=== PATIENT | female | born 1990 | race Two or more races ===

== ENCOUNTER 2019-04-14 09:35 | Emergency (ER) | payer OTHER ==
[2019-04-14 10:01] VITALS: TEMP 97.8; BMI 29.5
[2019-04-14] MEDS ORDERED: KETOROLAC TROMETHAMINE 60 MG/2 ML VIAL IM ONE (10:18)
[2019-04-14] MEDS ORDERED: KETOROLAC TROMETHAMINE 60 MG/2 ML VIAL ONE (10:27)
[2019-04-14 10:51] LABS: HYALINE CASTS 18 /lpf (0-8); PH,URINE 7.5 (5.0-8.0); URINE APPEARANCE CLOUDY; URINE BILIRUBIN NEGATIVE (NEGATIVE); URINE COLOR YELLOW; URINE GLUCOSE (UA) NEGATIVE (NEGATIVE); URINE KETONE NEGATIVE (NEGATIVE); URINE LEUK ESTERASE NEGATIVE (NEGATIVE); URINE NITRITE NEGATIVE (NEGATIVE); URINE PROTEIN 2+ (NEGATIVE); URINE RBC 4 /hpf (0-4); URINE WBC 7 /hpf (0-5)
--- NOTE | 2019-04-14 11:11 | PDOC ---
History of Present Illness - General History Source: Patient Exam Limitations: No Limitations - History of Present Illness Travel History: No Initial Comments: 04/14/19 10:06 28-year-old female presents to ED with complaints of worsening left suprapubic pain for the past few months. Patient denies irregular menses but states intermittent pain causes her to have headaches along with left-sided and right- sided chest pain. Patient denies any shortness of breath leg pain, or recent travel. Patient also states intermittent dyspareunia . patient states history of denies [employer]TAIN or GI history. Patient states regular menses and has an IUD placed approximately 3 years ago. Patient denies vaginal discharge, urinary complaints, fever, chills diarrhea, or nausea. Patient states has not taken any medication for the above and has not seen her SAIL[employer]AT CAPTAIN for the above complaints secondary to lack of insurance Timing/Duration: reports: getting worse, intermittent Quality: reports: mild Abdominal Pain Onset Location: reports: suprapubic Pain Radiation: reports: chest Activities at Onset: reports: none Aggravating Factors: improves with: Movement Alleviating Factors: improves with: None <Serena Sales - Last Filed: 04/14/19 14:51> <Buffy Sexton - Last Filed: 04/24/19 09:59> - General Chief Complaint: Pain, Acute Stated Complaint: ABD.PAIN/CHEST PAIN/BETANCUR Time Seen by Provider: 04/14/19 10:14 Past History - Travel Traveled outside of the country in the last 30 days: No Close contact w/someone who was outside of country & ill: No - Past Medical History Asthma: No Cancer: No Cardiac Disorders: No COPD: No Diabetes: No Disorders: No () HTN: No Seizures: No Thyroid Disease: No - Surgical History Abdominal Surgery: Yes Cholecystectomy: Yes - Reproductive History (#): 3 Para: 2 - Immunization History Immunization Up to Date: Yes - Psycho Social/Smoking Cessation Hx Smoking Status: No Smoking History: Current every day smoker Have you smoked in the past 12 months: Yes Number of Cigarettes Smoked Daily: 2 Information on smoking cessation initiated: No Hx Alcohol Use: No Drug/Substance Use Hx: No Substance Use Type: None Hx Substance Use Treatment: No Patient Lives Alone: No Lives with/in: spouse/SO <Serena aSles - Last Filed: 04/14/19 14:51> <Buffy eSxton - Last Filed: 04/24/19 09:59> - Past Medical History Allergies/Adverse Reactions: Allergies Allergy/AdvReac Type Severity Reaction Status Date / Time No Known Allergies Allergy Verified 01/31/17 14:55 Home Medications: Ambulatory Orders Ibuprofen [Motrin -] 600 mg PO PRN 04/14/19 Oxycodone HCl/Acetaminophen [Percocet 5-325 mg Tablet] 1 - 2 tab PO Q6H PRN #12 tab MDD 4 04/14/19 Review of Systems - Review of Systems Able to Perform ROS?: No Constitutional: No: Symptoms Reported HEENTM: No: Symptoms Reported Respiratory: No: Symptoms reported Cardiac (ROS): No: Symptoms Reported ABD/GI: Yes: Abdominal cramping. No: Nausea, Vomiting : No: Symptoms Reported Musculoskeletal: No: Symptoms Reported Integumentary: No: Symptoms Reported Hematologic/Lymphatic: No: Symptoms Reported <Serena Sales - Last Filed: 04/14/19 14:51> *Physical Exam - Vital Signs Last Vital Signs Temp Pulse Resp BP Pulse Ox 97.8 F 96 H 18 103/65 100 04/14/19 09:59 04/14/19 09:59 04/14/19 09:59 04/14/19 09:59 04/14/19 09:59 - Physical Exam General Appearance: Yes: Nourished, Appropriately Dressed. No: Apparent Distress HEENT: negative: Pale Conjunctivae Neck: positive: Normal Thyroid Respiratory/Chest: positive: Lungs Clear, Normal Breath Sounds. negative: Respiratory Distress, Accessory Muscle Use Cardiovascular: positive: Regular Rhythm, Regular Rate. negative: Murmur Female Pelvic Exam: positive: cervical os closed, adnexal tenderness (Left). negative: CMT ( No palpable IUD strings), discharge, vaginal bleeding Gastrointestinal/Abdominal: positive: Soft, Tenderness (Left suprapubic mid suprapubic) Musculoskeletal: negative: CVA Tenderness Extremity: positive: Normal Inspection Integumentary: positive: Normal Color, Warm, Moist Neurologic: positive: Motor Strength 5/5 (Ambulatory) <Serena Sales - Last Filed: 04/14/19 14:51> - Vital Signs Last Vital Signs Temp Pulse Resp BP Pulse Ox 97.8 F 80 16 113/63 100 04/14/19 09:59 04/14/19 12:44 04/14/19 12:44 04/14/19 12:44 04/14/19 12:44 <Buffy Sexton - Last Filed: 04/24/19 09:59> ED Treatment Course - ADDITIONAL ORDERS Additional order review: Laboratory Results 04/14/19 04/14/19 10:25 10:25 Urine Color Yellow Urine Appearance Cloudy Urine pH 7.5 D Ur Specific [place] 1.026 Urine Protein 2+ H Urine Glucose (UA) Negative Urine Ketones Negative Urine Blood Negative Urine Nitrite Negative Urine Bilirubin Negative Urine Urobilinogen 1.0 Ur Leukocyte Esterase Negative Urine WBC (Auto) 7 Urine RBC (Auto) 4 Urine Casts (Auto) 18 U Epithel Cells (Auto) 13.0 Urine Bacteria (Auto) 508.0 Urine HCG, Qual Negative - RADIOLOGY Radiology Studies Ordered: Category Date Time Status TRANSVAGINAL ULTRASOUND US [US] Stat Ultrasound 04/14/19 10:18 Ordered - Medications Given in the ED: ED Medications Discontinued Medications Generic Name Dose Route Start Last Admin Trade Name Freq PRN Reason Stop Dose Admin Ketorolac Tromethamine 60 mg 04/14/19 10:18 04/14/19 10:35 Toradol Injection - IM 04/14/19 10:19 60 mg ONCE ONE Administration <Serena Sales - Last Filed: 04/14/19 14:51> - ADDITIONAL ORDERS Additional order review: 04/14/19 10:25 Urine Culture - Final Urine - Urine Clean Catch NO GROWTH OBTAINED - Medications Given in the ED: ED Medications Discontinued Medications Generic Name Dose Route Start Last Admin Trade Name Freq PRN Reason Stop Dose Admin Ketorolac Tromethamine 60 mg 04/14/19 10:18 04/14/19 10:35 Toradol Injection - IM 04/14/19 10:19 60 mg ONCE ONE Administration <Buffy Sexton - Last Filed: 04/24/19 09:59> Medical Decision Making - Medical Decision Making 04/14/19 11:16 Chief complaint: Patient with intermittent left suprapubic pain worsening once and around menstrual cycles. Patient has IUD in for the past 3 years. Patient also states associated pain causes intermittent headache along with bilateral chest pain patient has not been seen by [employer]IL[employer]TAIN or PMD nor has she taken any medications. No other complaints. Exam: Patient with left suprapubic and left adnexal tenderness on pelvic exam plan: Urine urinalysis urine and transvaginal ultrasound ordered 04/14/19 11:17 Laboratory Tests 04/14/19 04/14/19 10:25 10:25 Urine Protein 2+ H Ur Leukocyte Esterase Negative Urine WBC (Auto) 7 Urine HCG, Qual Negative 04/14/19 12:05 Ultrasound shows intrauterine device in place mainly in the lower segment of the uterus. There is also a simple cyst dominant follicle in the left ovary. Normal vascular flow. There is no free fluid in the cul-de-sac. Patient states pain has not significantly subsided since receiving Toradol. Due to lack of identity of pain from ultrasound will order CT of the abdomen to rule out etiology such as GI involvement versus abscess 04/14/19 14:54 CT shows fluid-filled borderline dilated small bowel loops in the left abdomen that may be on the basis of ileus. Otherwise there is no CT evidence of acute process in the abdomen or pelvis. There is also a tiny fat containing umbilical hernia. IUD device in place. Normal Terminal ileum and appendix. Case discussed with attending Darshan and at this time we both agree patient needs to follow-up with GI. Called Dr. Mccauley's office who was able to see patient at 10 AM this Thursday which is in 2 days at the [place] office of Dr. Helder Duke. Patient in the meanwhile be given Percocet and told to come back if symptoms worsen <Serena Sales - Last Filed: 04/14/19 14:51> - Medical Decision Making I reviewed the case with the mid-level practitioner and agree with the mid- level practitioner's assessment, diagnosis and disposition. <Buffy Sexton - Last Filed: 04/24/19 09:59> Discharge - Discharge Information Problems reviewed: Yes <Serena Sales - Last Filed: 04/14/19 14:51> <Buffy Sexton - Last Filed: 04/24/19 09:59> - Discharge Information Clinical Impression/Diagnosis: Left lower quadrant abdominal pain Condition: Good Disposition: HOME - Additional Discharge Information Prescriptions: Oxycodone HCl/Acetaminophen [Percocet 5-325 mg Tablet] 1 - 2 tab PO Q6H PRN #12 tab MDD 4 PRN Reason: Pain - Follow up/Referral Referrals: Helder Duke MD [Primary Care Provider] - - Patient Discharge Instructions Patient Printed Discharge Instructions: DI for Ileus, DI for Abdominal Pain- Adult Additional Instructions: Please stay hydrated and keep active. Follow-up with Dr. Mccauley the Thursday at 10 AM at the [place] office. Take Percocet as needed for discomfort but do not operate any heavy machinery while taking this medication. - Post Discharge Activity Work/Back to School Note: Back to Work
[2019-04-14 14:45] VITALS: BP 113/63; PULSE 80
== END 2019-04-14 15:00 | disposition home or self-care (01) ==
LOC: SUPCPDRO 09:35 → JER 09:35
PROC: 3E0233Z Introduction of Anti-inflammatory into Muscle, Percutaneous Approach (ICD-10-PCS; principal; 2019-04-14)
DX: R10.32 Left lower quadrant pain (principal); N83.202 Unspecified ovarian cyst, left side
CPT/HCPCS: 74176-TC; 76830-TC; 81003; 84703; 87086; 99283-25

== ENCOUNTER 2023-12-09 11:45 | Emergency (ER) | payer OTHER ==
[2023-12-09 11:51] VITALS: BP 107/63; PULSE 93; RESP 18; TEMP 98.2; BMI 31.4
[2023-12-09] MEDS ORDERED: ALBUTEROL SO4 2.5/IPRATROPIUM 0.5 INH SOL 3 ML VIAL.NEB. NEB ONE (12:50)
[2023-12-09] MEDS ORDERED: ACETAMINOPHEN 500 MG TABLET (FP) ONE (12:51)
[2023-12-09] MEDS: ALBUTEROL SO4 2.5/IPRATROPIUM 0.5 INH SOL 3 ML VIAL.NEB. NEB ONE (13:06)
[2023-12-09] MEDS: ACETAMINOPHEN 500 MG TABLET (FP) PO ONE (13:06)
== END 2023-12-09 13:42 | disposition home or self-care (01) ==
LOC: JER 11:45
PROC: 3E0F7GC Introduction of Other Therapeutic Substance into Respiratory Tract, Via Natural or Artificial Opening (ICD-10-PCS; principal; 2023-12-09)
DX: R06.2 Wheezing (principal); R09.81 Nasal congestion; J06.9 Acute upper respiratory infection, unspecified; R05.9 Cough, unspecified; R09.89 Other specified symptoms and signs involving the circulatory and respiratory systems; J02.9 Acute pharyngitis, unspecified; R06.02 Shortness of breath; Z20.822 Contact with and (suspected) exposure to COVID-19
CPT/HCPCS: 0241U-QW; 71046-TC-FY; 87651; 93005; 93010; 99285-25